=== PATIENT | female | born 2000 | race Asian ===

== ENCOUNTER 2025-04-02 11:52 | Outpatient (AMB) | payer OTHER, SELFPAY ==
[2025-04-02 12:06] VITALS: BP 112/76; PULSE 84; O2SAT 100; BMI 21.3
--- NOTE | 2025-04-02 12:06 | A.OFFPC_ITS ---
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 ROWE OA PCP needs to be change Is last menstrual period known: Yes Last menstrual period: 03/02/25 Allergies No Known Allergies Allergy (Verified 04/02/25 12:07) Medication List - Last Reconciled 04/02/25 by Petrona Mark MD No Known Home Meds Tobacco use date assessed: 04/02/25 Dental Screening Dental Screen Date: 04/02/25 Did you have a dental visit in the last 12 months?: No Did you have a dental problem in the last 6 months where you did not have access to dental care?: No Was dental information given to patient?: No HPI HOME ENERGY INSPECTOR ok per DR. ROWE OA PCP needs to be change HPI Details Chief Complaint establish care and PE History - The patient is a 24-year-old female pr esenting with a request for a referral to a telecommunication systems designer for acne. - The patient reports that acne may be a ssociated with makeup use. The specific makeup products applied are not specified. - The patient states that this is her fi rst medical visit in this location and is seeking advice on managing her skin condition until the appointment with the telecommunication systems designer. - She denies any other health issues, in cluding asthma, allergies, thyroid problems, diabetes, or hypertension. - Reports no use of medications and no p rior treatment for acne. - slight vaginal discharge before and af ter periods, also need to get established with [facility] Maintenance - Vaccination records need updating; the patient is advised to bring vaccination records at the next visit to add to the chart. - A general blood test, including thyroi d function and anemia screening, has b een discussed as a routine measure. - Gynecological check-up and breast exam mentioned for future scheduling. Family History - Denies family history of diabetes, hyp ertension, or thyroid problems. Patient Instructions - Get a blood test done for thyroid and anemia screening. - Bring vaccination records to the next appointment. - Call the telecommunication systems designer's office in a [place] to confirm paperwork medical records receptionist and schedule an appointment. - Avoid using makeup products that may w orsen acne. - Follow up with the gynecology recommen dation for routine check-up and breast exam. Review of Systems - General: No fever no chills - Neurological: No headaches no dizzin ess - Ear nose throat: No sore throat no hearing difficulty no ear pain - Cardiovascular: No syncope, no chest pain, no palpitations - Gastrointestinal: No nausea vomiting or diarrhea - Endocrine: No polyuria polydipsia no heat intolerance - Genitourinary: No dysuria - Skin: No new complaints Physical Exam General: Cooperative, healthy appearing, comfortable, no acute distress Orientation: Patient oriented x3 Head: Normal to inspection Ears: Within normal limit visually Nose: Normal external nose present Face and sinus: Normal facial exam Eyes: Appearance normal, extraocular movement intact pupils reactive Neck: Normal visual inspection and supple Respiratory: Normal respiratory effort and able to speak in complete sentences. Clear to auscultation, no stridor Cardiovascular: S1 and S2 RRR GI: Normal to inspection. Soft to palpation and nontender Skin: Turgor normal, facial acne noticed Neuro: Patient oriented x3, motor sensory intact, balance intact, tandem pass Extremities: Normal to inspection [facility] Social History Housing: House Patient Tobacco Use Status: Never used Tobacco e-Cigarette/Vaping Use: Never Used service: No Current occupational status: student Current occupational exposures/hazards: No Cognitive needs: No Hearing needs: No Vision needs: No Female Reproductive History Menstrual Date of last menstrual period: 03/02/25 Questionnaire PHQ-9 Over the last 2 weeks, how often have you been bothered by any of the following problems? 1. Little interest or pleasure in doing things: several days 2. Feeling down, depressed, or hopeless: not at all 3. Trouble falling or staying asleep, or sleeping too much: not at all 4. Feeling tired or having little energy: not at all 5. Poor appetite or overeating: not at all 6. Feeling bad about yourself - or that you are a failure or have let yourself or your family down: not at all 7. Trouble concentrating on things, such as reading the newspaper or watching television: not at all 8. Moving or speaking so slowly that other people could have noticed. Or the opposite - being so fidgety or restless that you have been moving around a lot more than usual: not at all 9. Thoughts that you would be better off or of hurting yourself in some way: not at all Total score: 1 Depression Screening Interpretation: Negative Depression Screening Done: Yes 91482 - PHQ-9 Billing: Yes Source: Developed by Drs. Bandar Garcia, Senia Gage, Cruz Ervin and colleagues, with an educational erica from [employer]. Thrive Questionnaire Date Thrive assessed: 04/02/25 I am a: Patient What is your living situation today?: I have a steady place to live Within the past 12 months, did the food you bought not last and you didn't have the money to get more?: Never true Within the past 12 months, did you worry whether your food would run out before you got money to buy more?: Never true Do you have trouble paying for medicines?: I choose not to answer this question Do you have trouble getting transportation to medical appointments?: No Do you have trouble paying your heating and electricity bill?: No Do you have trouble taking care of your child, family member or friend?: No Do you have trouble with day-to-day activities such as bathing, preparing meals, shopping, managing finances, etc.?: No Are you currently unemployed and looking for a job?: Yes Are you interested in more education?: I choose not to answer this question Please select the resources that you would like help with: None Currently or been in a relationship where the following occur: I choose not to answer THRIVE Score: 0 AUDIT C Alcohol Use Questionnaire (AUDIT-C) 1. How often do you have a drink containing alcohol?: Never 3. How often do you have six or more drinks on one occasion?: Never Total Score: 0 Score Reviewed/Action Taken: Yes JAELYN-7 AMB Questionnaire JAELYN-7 Date JAELYN - 7 assessed: 04/02/25 Feeling nervous, anxious, or on edge: 0 = Not at all Not being able to stop or control worryin = Not at all Worrying too much about different things: 0 = Not at all Trouble relaxin = Not at all Being so restless that it is hard to sit still: 0 = Not at all Becoming easily annoyed or irritable: 0 = Not at all Feeling afraid as if something awful might happen: 0 = Not at all Total JAELYN-7 score (0-4 normal; 5-9 mild; 10-14 moderate; 15-21 severe): 0 Source: Developed by Drs. Bandar Garcia, Senia Gage, Cruz Ervin and colleagues, with an educational erica from [employer]. JAELYN-7 Assessment Billing JAELYN-7 Assessment Tool: JAELYN-7 Assessment 49841 Physical exam (Primary Care) Vital Signs: Last Vital Signs Pulse 84 04/02/25 12:06 BP 112/76 04/02/25 12:06 Pulse Ox 100 04/02/25 12:06 Oxygen Delivery Method Room Air 04/02/25 12:06 BMI result Body Mass Index 21.3 Tobacco/Smoking Status: Tobacco use Status Tobacco use date assessed 04/02/25 04/02/25 12:08 Patient Tobacco Use Status Never used Tobacco 04/02/25 12:08 e-Cigarette/Vaping Use Never Used 04/02/25 12:08 PHQ-9: PHQ-9 Score PHQ-9: Total score 1 04/02/25 12:21 Depression Screening Interpretation: Negative Thrive Assessment: Date of Thrive Assessment Date Thrive assessed 04/02/25 04/02/25 12:08 Currently or been in a relationship where the following occur: I choose not to answer Coding Level of Care Code New Pt Level 3 (32779) New Pt Prev Care 18-39yr(24696 Diagnoses Encounter for general adult medical examination with abnormal findings Z00. Acne vulgaris L70.0 Acne type: acne vulgaris Immunizations incomplete Z28.39 Additional Codes JAELYN-7 Assessment Billing - JAELYN-7 Assessment Tool: JAELYN-7 Assessment 94659 ([id number]) PHQ-9 - 49641 - PHQ-9 Billing: Yes ([id number]) Assessment & Plan Assessment & Plan (1) Encounter for general adult medical examination with abnormal findings: Code(s): Z00.01 - Encounter for general adult medical examination with abnormal findings (2) Acne: Code(s): L70.9 - Acne, unspecified Category: Medical Qualifiers: Acne type: acne vulgaris Qualified Code(s): L70.0 - Acne vulgaris (3) Immunizations incomplete: Code(s): Z28.39 - Other underimmunization status Category: Medical Plan Chief Complaint establish care and PE History - The patient is a 24-year-old female presenting with a request for a referral to a telecommunication systems designer for acne. - The patient reports that acne may be associated with makeup use. The specific makeup products applied are not specified. - The patient states that this is her first medical visit in this location and is seeking advice on managing her skin condition until the appointment with the telecommunication systems designer. - She denies any other health issues, including asthma, allergies, thyroid problems, diabetes, or hypertension. - Reports no use of medications and no prior treatment for acne. - slight vaginal discharge before and after periods, also need to get established with [facility] Maintenance - Vaccination records need updating; the patient is advised to bring vaccination records at the next visit to add to the chart. - A general blood test, including thyroid function and anemia screening, has been discussed as a routine measure. - Gynecological check-up and breast exam mentioned for future scheduling. Family History - Denies family history of diabetes, hypertension, or thyroid problems. Patient Instructions - Get a blood test done for thyroid and anemia screening. - Bring vaccination records to the next appointment. - Call the telecommunication systems designer's office in a week to confirm paperwork medical records receptionist and schedule an appointment. - Avoid using makeup products that may worsen acne. - Follow up with the gynecology recommendation for routine check-up and breast exam. Orders: Orders Complete Blood Count Auto Diff Today L70.9 - Acne, unspecified, Z00.01 - Encounter for general adult medical examination with abnormal findings Comprehensive [place]. Panel Fast Today L70.9 - Acne, unspecified, Z00.01 - En counter for general adult medical examination with abnormal findings TSH reflex Free T4 Today L70.9 - Acne, unspecified, Z00.01 - Encounter for general adult medical examination with abnormal findings Rubella IgG Antibody Today L70.0 - Acne vulgaris, Z28.39 - Other underimmunization status Rubeola IgG (Measles) Today L70.0 - Acne vulgaris, Z28.39 - Other underimmunization status Hepatitis C Antibody Today L70.0 - Acne vulgaris, Z28.39 - Other underimmunization status Lipid Panel Today L70.9 - Acne, unspecified, Z00.01 - Encounter for general adult medical examination with abnormal findings Vitamin D 25-OH (D2 and D3) Today L70.9 - Acne, unspecified, Z00.01 - Encounter for general adult medical examination with abnormal findings Mumps Virus IgG Antibody Today L70.0 - Acne vulgaris, Z28.39 - Other unde rimmunization status T Spot TB Today L70.0 - Acne vulgaris, Z28.39 - Other underimmunization status Tetanus Antitoxiod Antibody Today L70.0 - Acne vulgaris, Z28.39 - Other underimmunization status Varicella IgG Antibody Today L70.0 - Acne vulgaris, Z28.39 - Other underimmunization status Hepatitis B Surface Antibody Today L70.0 - Acne vulgaris, Z28.39 - Other underimmunization status Referrals [facility] C[employer]ER [employer] Referral Z01.419 - Encounter for gynecological examination (general) (routine) without abnormal findings Dermatology Referral L70.9 - Acne, unspecified Medications: New clindamycin phosphate 1% 1 appl topical BEDTIME 60 mL 0RF Acne
== END 2025-04-02 12:22 | disposition home or self-care (01) ==
LOC: HO.HMCC 11:53
PROVIDERS: PCP Internal Medicine; Visit Provider Internal Medicine
DX: Z00.01 Encounter for general adult medical examination with abnormal findings (principal); L70.0 Acne vulgaris; Z28.39 Other underimmunization status

== ENCOUNTER → 2025-04-02 11:52 | Outpatient (BNVA) | payer OTHER, SELFPAY | PROVIDERS: PCP Internal Medicine; Visit Provider Internal Medicine | DX: Z00.01 Encounter for general adult medical examination with abnormal findings (principal); L70.0 Acne vulgaris; Z28.39 Other underimmunization status | CPT/HCPCS: 96127; 99202; 99385 ==

== ENCOUNTER 2025-04-03 10:01 | Outpatient (REF) | payer OTHER, SELFPAY ==
[2025-04-03 11:40] LABS: MANUAL DIFF FLAG NO
[2025-04-03 11:45] LABS: Basophils Percent Auto 0.2 % (0-2); Eosinophils Absolute Auto 0.1 X10*3/uL (0.0-0.4); Eosinophils Percent Auto 1.1 % (0-4); Hematocrit 36.8 % (37.0-47.0); Hemoglobin 12.3 g/dl (12.0-16.0); Imm Gran Abs Auto 0.01 X10*3/uL (0.00-0.03); Imm Gran Pct Auto 0.2 % (0.0-0.4); Lymphocytes Absolute Auto 2.6 X10*3/uL (1.2-4.9); Lymphocytes Percent Auto 38.6 % (20-40); Mean Corpuscular HGB Conc 33.4 g/dl (31.0-35.0); Mean Corpuscular Hemoglobin 29.1 pg (27.0-33.0); Mean Platelet Volume 10.2 fL (9.4-12.3); Monocytes Absolute Auto 0.6 X10*3/uL (0.1-1.2); Monocytes Percent Auto 8.9 % (2-11); Neutrophils Absolute Auto 3.4 x10*3/uL (2.0-8.3); Platelet Count 298 X10*3/uL (160-400); Red Blood Count 4.23 X10*6/uL (4.20-5.50); Red Cell Distribution Width 13.1 % (11.0-16.0); White Blood Count 6.6 X10*3/uL (4.8-10.8)
[2025-04-03 12:16] LABS: Alanine Aminotransferase 65 U/L (0-31); Albumin Level 4.4 g/dL (3.5-5.0); Alkaline Phosphatase 53 U/L (39-117); Anion Gap 13 (12-20); Aspartate Amino Transferase 41 U/L (5-31); Bilirubin Total 0.5 mg/dL (0.0-1.0); Blood Urea Nitrogen 8 mg/dL (9-16); Calcium 9.5 mg/dL (8.4-10.2); Carbon Dioxide 22 mmol/L (22-29); Chloride 104 mmol/L (96-108); Cholesterol 157 mg/dL (<200); Estimated Glomerular Filt Rate > 60; Glucose Fasting 91 mg/dL (60-99); HDL Cholesterol 46 mg/dL (>40); LDL Cholesterol Calculated 95 mg/dL (<100); Sodium 135 mmol/L (135-145); Total Protein 8.5 g/dL (6.5-8.0); Triglycerides 82 mg/dL (<150)
[2025-04-03 12:17] LABS: HBS Num1 50.53 mIU/mL (0-7.99); ~HepC Num1 0.14 S/CO (0.00-0.79); ~Hepatitis B Surface Antibody REACTIVE (Nonreactive); ~Hepatitis C Antibody Nonreactive (Nonreactive)
[2025-04-03 12:18] LABS: TSH reflex Free T4 2.88 uIU/mL (0.32-4.0)
[2025-04-05 21:49] LABS: Rubeola IgG (Measles) >300.00 AU/mL; Varicella IgG Antibody 4.48 S/CO
[2025-04-07 12:39] LABS: Tetanus Antitoxiod Antibody 2.28 IU/mL
[2025-04-08 15:18] LABS: Vitamin D 25-OH, D2 <4 ng/mL; Vitamin D 25-OH, D3 20 ng/mL; Vitamin D 25-OH, Total 20 ng/mL (30-100)
== END 2025-04-03 10:02 | disposition home or self-care (01) ==
LOC: HO.HMGCLDS 10:01
PROVIDERS: PCP Internal Medicine; Visit Provider Internal Medicine
DX: Z00.01 Encounter for general adult medical examination with abnormal findings (principal); L70.9 Acne, unspecified; Z28.39 Other underimmunization status; L70.0 Acne vulgaris
CPT/HCPCS: 36415; 80053; 80061; 82306; 84443; 85025; 86706; 86735; 86762; 86765; 86774; 86787; 86803

== ENCOUNTER 2025-04-05 10:51 | Outpatient (REF) | payer OTHER, SELFPAY ==
[2025-04-07 23:19] LABS: TS Negative Control Passed; TS Panel A 0; TS Panel B 0; TS Positive Control Passed; TSpotTB Negative (Negative)
== END 2025-04-05 10:52 | disposition home or self-care (01) ==
LOC: HO.HMGCLDS 10:51
PROVIDERS: PCP Internal Medicine; Visit Provider Internal Medicine
DX: L70.0 Acne vulgaris (principal); Z28.39 Other underimmunization status
CPT/HCPCS: 36415; 86481

== ENCOUNTER 2025-04-08 08:18 | Outpatient (REF) | payer OTHER, SELFPAY ==
--- OUTSIDE RECORDS SUMMARY | 2025-04-08 10:57 | XMS_ITS | Clinical Summary ---
Author Organization [facility] Address [address] [place] [address] Phone Care Team Providers Care Cementer Machine Joiner Name Role Phone Unavailable Primary Care Provider [...] AM EDT Office Visit Obstetrics and Gynecology [facility] [place] [address] [place] [address] Tarah Andujar, [facility] [address] [place] [address] Health Maintenance Due Date Last Done Comments [...]
[2025-04-08 14:22] LABS: HCG Quantitative 33893 mIU/mL
== END 2025-04-08 08:19 | disposition home or self-care (01) ==
LOC: HO.HMGCLDS 08:18
PROVIDERS: PCP Internal Medicine; Visit Provider Internal Medicine
DX: N92.6 Irregular menstruation, unspecified (principal); R74.01 Elevation of levels of liver transaminase levels
CPT/HCPCS: 36415; 84702

== ENCOUNTER 2025-04-08 08:18 | Outpatient (AMB) | payer OTHER, SELFPAY ==
--- OUTSIDE RECORDS SUMMARY | 2025-04-08 08:33 | XMS_ITS | Clinical Summary ---
Author Organization [facility] Address [address] [place] [address] Phone Care Team Providers Care Platform Man Name Role Phone Unavailable Primary Care Provider Unavailabl e Social History Tobacco Use Types Packs/Day Years Used Date Smoking Tobacco: Never Assessed Comments Unknown Sex and Gender Information Value Date Recorded Sex Assigned at Not on file Legal Sex Female 11:16 AM EDT Gender Identity Not on file Sexual Orientation Not on file Plan of Treatment Upcoming Encounters Date Type Department Care Team (Late st Contact Info) Description 04/22/2025 10:30 AM EDT Office Visit [place]stetrics [place] [facility] [place] [address] [place] [address] Tarah Andujar, [facility] [address] [place] [address] Health Maintenance Due Date Last Done Comments Gonorrhea/Chlamydia Screening 2001 HPV Vaccines (1 - 3-dose series) 2016 Meningococcal B Vaccine (1 o f 2 - Standard) 2017 DTaP,Tdap,and Td Vaccines (1 - Tdap) 2020 Hepatitis B Vaccines (1 of 3 - 19+ 3-dose series) 2020 Cervical Cancer Screening: P ap Smear 2022 COVID-19 Vaccine ( - 2023-2 5 season) 2024 Depression Screening 04/06/2025 HIV Screening 04/06/2025 Hepatitis C Screening 04/06/2025 Social Influencers of Health Screening 04/06/2025 Influenza Vaccine (Season Ended) 2025 HIB Vaccines Aged Out No longer eligi ble based on patient's age to complete this topic Hepatitis A Vaccines Aged Out No long er eligible based on patient's age to complete this topic IPV Vaccines Aged Out No longer eligi ble based on patient's age to complete this topic MMR Vaccines Aged Out No longer eligi ble based on patient's age to complete this topic Meningococcal ACWY Vaccine Aged Out N o longer eligible based on patient's age to complete this topic Pneumococcal Vaccine: Pediat rics (0 to 5 Years) and At-Risk Patients (6 to 64 Years) Aged Out No longer eligible b ased on patient's age to complete this topic RSV Immunization Patients Un lex 20 months Aged Out No longer eligible b ased on patient's age to complete this topic Varicella Vaccines Aged Out No longer eligible based on patient's age to complete this topic Insurance PLAN
--- NOTE | 2025-04-08 09:17 | A.OFFPC_ITS ---
Intake Visit Reasons: Discuss Labs Allergies No Known Allergies Allergy (Verified 04/02/25 12:07) Medication List - Last Reconciled 04/08/25 by Petrona Mark MD clindamycin phosphate 1% 1 appl topical BEDTIME Tobacco use date assessed: 04/02/25 Dental Screening Dental Screen Date: 04/02/25 HPI Discuss Labs HPI Details History - The patient is a 24-year-old female she had labs done recently, showed elevated liver enzymes The patient has been informed that an ultrasound imaging study of the abdomen will be conducted to ensure there are no underlying problems with the liver she has not abdominal symptoms - The patient last reported her menstrua l period on March 02, necessitating investigation for possible via blood test. Problem List - Suspected - Liver conserns requiring ultrasound im aging Patient Instructions - Attend the scheduled ultrasound appoin tment to check the abdomen for anything unusual. - Follow up with the office for the bloo d test result regarding potential . - Be attentive to any symptoms or change s and contact the office if needed. Review of Systems. - General: No fever no chills - Neurological: No headaches no dizziness - Ear nose throat: No sore throat no hearing difficulty no ear pain - Cardiovascular: No syncope, no chest pain, no palpitations - Gastrointestinal: No nausea vomiting or diarrhea PFSH Social History Housing: House Patient Tobacco Use Status: Never used Tobacco e-Cigarette/Vaping Use: Never Used service: No Current occupational status: student Current occupational exposures/hazards: No Cognitive needs: No Hearing needs: No Vision needs: No Questionnaire Thrive Questionnaire Date Thrive assessed: 04/02/25 JAELYN-7 AMB Questionnaire JAELYN-7 Date JAELYN - 7 assessed: 04/02/25 Source: Developed by Drs. Bandar Garcia, Senia Gage, Cruz Ervin and colleagues, with an educational erica from [employer]. Physical exam (Primary Care) Tobacco/Smoking Status: Tobacco use Status Tobacco use date assessed 04/02/25 04/08/25 09:17 Patient Tobacco Use Status Never used Tobacco 04/08/25 09:17 e-Cigarette/Vaping Use Never Used 04/08/25 09:17 Thrive Assessment: Date of Thrive Assessment Date Thrive assessed 04/02/25 04/08/25 09:17 Telehealth Telehealth Telehealth Platform: [employer] Location of provider rendering services: practice address Location of patient: address on file Patient Identification confirmed using: Name, : Yes Telehealth method: voice only Patient verbally consented to treatment: Yes Patient verbally consented to billing insurance company: Yes Patient informed of any privacy concerns related to visit: Yes Minutes spent on Phone/Video with Pt.: 13 Coding Level of Care Code Tele Est Pt Level 3 (47787) Diagnoses Missed period N92.6 LFT elevation R79.89 Assessment & Plan Assessment & Plan (1) Missed period: Code(s): N92.6 - Irregular menstruation, unspecified Category: Medical (2) LFT elevation: Code(s): R79.89 - Other specified abnormal findings of blood chemistry Category: Medical Plan History - The patient is a 24-year-old female she had labs done recently, showed elevated liver enzymes The patient has been informed that an ultrasound imaging study of the abdomen will be conducted to ensure there are no underlying problems with the liver she has not abdominal symptoms - The patient last reported her menstrual period on March 02, necessitating investigation for possible via blood test. Problem List - Suspected - Liver conserns requiring ultrasound imaging Patient Instructions - Attend the scheduled ultrasound appointment to check the abdomen for anything unusual. - Follow up with the office for the blood test result regarding potential . - Be attentive to any symptoms or changes and contact the office if needed. Orders: Orders US abdomen limited Today R79.89 - Other specified abnormal findings of blood chemistry HCG Quantitative Today N92.6 - Irregular menstruation, unspecified
== END 2025-04-08 10:06 | disposition home or self-care (01) ==
LOC: HO.HMCC 08:18
PROVIDERS: PCP Internal Medicine; Visit Provider Internal Medicine
DX: N92.6 Irregular menstruation, unspecified (principal); R79.89 Other specified abnormal findings of blood chemistry

== ENCOUNTER 2025-05-05 09:43 | Outpatient (REF) | payer OTHER, SELFPAY ==
--- NOTE | ~2025-05-05 | US_ITS ---
CLINICAL HISTORY: R79.89 - Other specified abnormal findings of blood chemistry US abdomen limited Comparison: None Findings: The visualized pancreas is normal. The aorta and inferior vena cava are normal caliber. The liver is normal in size and echotexture. There is no intrahepatic bile duct dilatation. The common duct is 1.3 mm in diameter. The gallbladder is normal. There is no sonographic Amin sign. The main portal vein is antegrade. The right kidney is 9.7 cm in length. A 3.0 mm nonobstructing stone within the midpole. No hydronephrosis. No ascites. IMPRESSION: Unremarkable limited abdominal ultrasound. A 3 mm nonobstructing stone within the right kidney midpole. No hydronephrosis. This document has been electronically signed by: Brigitte Connor MD on 05/05/2025 23:54:43
--- OUTSIDE RECORDS SUMMARY | 2025-05-05 10:41 | XMS_ITS | Clinical Summary ---
Author Organization [facility] Address [address] [place] [address] Phone Care Team Providers Care Fly Fishing Guide Name Role Phone Petrona Mark MD Primary Care Provider [phone] Allergies No known active allergies Medications Vitamin D3 25 mcg (1,000 unit) capsule Take 1 capsule (1,000 Units total) by mouth 1 (one) time each day. 04/09/2025 Active vitamin iron fum-folic acid 27-0.8 mg per tablet Take 1 tablet by mouth 1 (one) time each day. 30 each 04/22/2025 Active pyridoxine (VITAMIN B-6) 25 mg tabletIndicatio ns:Nausea and vomiting in prior to 22 weeks gestation Take 1 tablet (25 mg total) by mouth 4 (four) times a day (before meals and nightly). 120 tablet 04/22/2025 Active Active Problems Problem Noted Date Diagnosed Date Elevated liver enzymes 04/22/2025 Overview (04/22/2025): 03/2025- done at PCP office, Abd US ordered for further evaluation- scheduled for 05/05/2025 Pt denies alcohol use- will continue to monitor. Estimated Date of Delivery Comme nts Yes 12/07/2025 Encounters Date Type Department Care Team Description 04/22/2025 10:30 AM EDT Office Visit Obstetrics and Gynecology [address] [phone] Tarah Andujar CNM Early stage of (Primary Dx); Nausea and vomiting in prior to 22 weeks gestation; 7 weeks gestation of ; Elevated liver enzymes from Last 3 Months Social History Tobacco Use Types Packs/Day Years Used Date Smoking Tobacco: Never Smokeless Tobacco: Never Tobacco Cessation:Counseling Given: Not Answered Alcohol Use Standard Drinks/Week Comments Never 0 (1 standard drink = 0.6 oz pur e alcohol) Estimated Date of Delivery Comme nts Yes 12/07/2025 Sex and Gender Information Value Date Recorded Sex Assigned at Not on file Legal Sex Female 11:16 AM EDT Gender Identity Not on file Sexual Orientation Not on file Obstetrics History Para Term AB IAB SAB Ectopic Multiple Livin g Live Births 1 Date Outcome GA Total Labor Labor/2nd/3rd Weight Sex Type Anes PTL Steph A1 A5 Name Clin Current Last Filed Vital Signs Vital Sign Reading Time Taken Comments Blood Pressure 103/66 04/22/2025 10:39 AM EDT Pulse 80 04/22/2025 10:39 AM EDT Temperature - - Respiratory Rate - - Oxygen Saturation - - Inhaled Oxygen Concentration - - Weight 50.8 kg (112 lb) 04/22/2025 10:39 AM EDT Height 154.9 cm (5' 1 ) 04/22/2025 10:39 AM EDT Body Mass Index 21.16 04/22/2025 10:39 AM EDT Plan of Treatment Upcoming Encounters Date Type Department Care Team (Late st Contact Info) Description 05/19/2025 10:00 AM EDT Clinical Support Obstetrics and Gynecology - [address] [address] 05/26/2025 10:30 AM EDT Initial Obstetrics and Gynecology - [address] [address] Tarah Andujar, [facility] [address] [place] [address] Health Maintenance Due Date Last Done Comments [...] patient's age to complete this topic Insurance [facility] Care Teams Fly Fishing Guide Relationship Specialty Start Date End Date Petrona Mark MD [address] [place] [phone] PCP - General Internal Medicine 04/22/25
== END 2025-05-05 09:44 | disposition home or self-care (01) ==
LOC: HO.HMGCX 09:43
PROVIDERS: PCP Internal Medicine; Visit Provider Internal Medicine
DX: R79.89 Other specified abnormal findings of blood chemistry (principal)
CPT/HCPCS: 76705

== ENCOUNTER → 2025-05-05 09:51 | Outpatient (BNV) | payer OTHER, SELFPAY | PROVIDERS: PCP Internal Medicine; Visit Provider Student in an Organized Health Care Education/Training Program | DX: N20.0 Calculus of kidney (principal) | CPT/HCPCS: 76705 ==